=== PATIENT | female | born 1980 | race Caucasian/White ===

== ENCOUNTER → 2020-08-20 | Outpatient (CLI) | payer OTHER ==
[~2020-08-20] MED LIST: ELAVIL 25 MG TA25 MG PO; LEVAQUIN750 MG PO; LODINE CAP 300300 MG PO; NABUMETONE500 MG PO; NORFLEX 100 MG100 MG PO; PERCOCET 5/325 T1 EA PO; ZOFRAN ODT 4 MG4 MG PO
== END ==
LOC: KOH-I 10:55
DX: M25.561 Pain in right knee (principal); M25.522 Pain in left elbow; M25.512 Pain in left shoulder; M54.41 Lumbago with sciatica, right side; M17.11 Unilateral primary osteoarthritis, right knee
CPT/HCPCS: 72100; 73030; 73070; 73562

== ENCOUNTER → 2020-10-01 | Outpatient (CLI) | payer OTHER | LOC: KOH-I 09:15 | DX: M54.41 Lumbago with sciatica, right side (principal); M22.41 Chondromalacia patellae, right knee; M47.815 Spondylosis without myelopathy or radiculopathy, thoracolumbar region | CPT/HCPCS: 72148; 73721 ==

== ENCOUNTER 2020-10-03 02:39 | Emergency (ER) | payer OTHER ==
[~2020-10-03 02:39] MED LIST changes: -LODINE CAP 300300 MG PO; -NORFLEX 100 MG100 MG PO
[2020-10-03] MEDS ORDERED: NORFLEX 100 MG100 MG PO (03:34)
[2020-10-03] MEDS ORDERED: LODINE CAP 300300 MG PO (03:34)
== END 2020-10-03 04:10 | disposition home or self-care (01) ==
LOC: ER1 02:39
DX: S46.911A Strain of unspecified muscle, fascia and tendon at shoulder and upper arm level, right arm, initial encounter (principal); F17.210 Nicotine dependence, cigarettes, uncomplicated; X58.XXXA Exposure to other specified factors, initial encounter
CPT/HCPCS: 73030; 96372; 99283; J1885

== ENCOUNTER 2021-05-03 19:16 | Emergency (ER) | payer OTHER ==
[~2021-05-03 19:16] MED LIST changes: +LODINE CAP 300300 MG PO; +NORFLEX 100 MG100 MG PO
[2021-05-03 20:22] LABS: RED BLOOD COUNT 6.08 M/UL (4.00-5.10); WHITE BLOOD COUNT 16.4 K/UL (4.5-11.0)
[2021-05-03 20:51] LABS: BORDETELLA PARAPERTUSSIS Not Detected (Not Detectd); BORDETELLA PERTUSSIS Not Detected (Not Detectd); CHLAMYDIA PNEUMONIAE Not Detected (Not Detectd); CORONAVIRUS HKU1 Not Detected (Not Detectd); CORONAVIRUS NL63 Not Detected (Not Detectd); CORONAVIRUS OC43 Not Detected (Not Detectd); CORONOAVIRUS 229E Not Detected (Not Detectd); HUMAN METAPNEUMOVIRUS Not Detected (Not Detectd); HUMAN RHINOVIRUS/ENTEROVIRUS Not Detected (Not Detectd); INFLUENZA A Not Detected (Not Detectd); INFLUENZA B Not Detected (Not Detectd); MYCOPLASMA PNEUMONIAE Not Detected (Not Detectd); PARAINFLUENZA VIRUS 1 Not Detected (Not Detectd); PARAINFLUENZA VIRUS 2 Not Detected (Not Detectd); PARAINFLUENZA VIRUS 3 Not Detected (Not Detectd); PARAINFLUENZA VIRUS 4 Not Detected (Not Detectd); RESPIRATORY SYNCYTIAL VIRUS Not Detected (Not Detectd)
[2021-05-03 21:00] LABS: BUN/CREATININE RATIO 12 (0-10)
[2021-05-03] MEDS ORDERED: OMNICEF 300 MG300 MG PO (21:09)
[2021-05-03 21:56] LABS: SARS-CoV-2 NOT DETECTED (Not Detectd)
[2021-05-03] MEDS ORDERED: AUGMENTIN 875-1 EACH PO (22:07)
== END 2021-05-03 22:20 | disposition home or self-care (01) ==
LOC: ER1 19:16
PROVIDERS: Nurse Practitioner
DX: J18.9 Pneumonia, unspecified organism (principal); N39.0 Urinary tract infection, site not specified; Z20.822 Contact with and (suspected) exposure to COVID-19
CPT/HCPCS: 71045; 80053; 81001; 85025; 87086; 87633; 99283

== ENCOUNTER 2021-10-24 23:12 | Emergency (ER) | payer OTHER ==
[~2021-10-24 23:12] MED LIST changes: +AUGMENTIN 875-1 EACH PO; +OMNICEF 300 MG300 MG PO
[2021-10-24 23:53] LABS: HEMOGLOBIN 14.1 gm/dl (12.3-15.3); RED BLOOD COUNT 6.66 M/UL (4.00-5.10); WHITE BLOOD COUNT 14.5 K/UL (4.5-11.0)
[2021-10-25 00:19] LABS: BUN/CREATININE RATIO 19 (0-10)
== END 2021-10-25 04:24 | disposition home or self-care (01) ==
LOC: ER1 23:12
PROVIDERS: Physician Assistant
DX: R07.89 Other chest pain (principal); F17.200 Nicotine dependence, unspecified, uncomplicated
CPT/HCPCS: 71045; 80053; 82550; 82553; 84484; 85025; 93005; 99285

== ENCOUNTER → 2021-12-29 | Outpatient (CLI) | payer OTHER | LOC: KOH-I 09:51 | DX: M25.511 Pain in right shoulder (principal) | CPT/HCPCS: 73030 ==

== ENCOUNTER → 2021-12-30 | Outpatient (CLI) | payer OTHER | LOC: KOH-I 10:03 | DX: M79.672 Pain in left foot (principal); M79.671 Pain in right foot | CPT/HCPCS: 73610; 73630 ==